=== PATIENT | male | born 1945 | race Caucasian/White ===

== ENCOUNTER 2016-05-03 09:31 | Inpatient (IN) | payer MEDICARE, OTHER ==
[~2016-05-03] VITALS: Ht 177.8 cm; Wt 81.8 kg
[2016-05-03] VITALS (24 sets, daily range): BP systolic 116–158; BP diastolic 58–94; PULSE 72–95; RESP 14–26; Ht 177.8 cm; Wt 81.8 kg
[2016-05-03] MEDS ORDERED: SOD CHLORIDE 0.9% 500 ML IV STA (09:44)
[2016-05-03] MEDS ORDERED: HEPARIN 25000 UNITS/250 ML 250 ML IV STA (09:44)
[2016-05-03] MEDS ORDERED: ASPIRIN 325 MG TAB PO STA (09:44)
[2016-05-03] MEDS ORDERED: HEPARIN 1000 UNITS/ML 10 ML INJ IV STA (09:44)
[2016-05-03] MEDS ORDERED: TICAGRELOR 90 MG TABLET PO ONE (10:00)
[2016-05-03] MEDS ORDERED: NITROGLYCERIN (SL) 0.4 MG TAB SL PRN (10:00)
[2016-05-03 10:11] LABS: BASOPHILS % 0.3 % (0.0-2.0); EOSINOPHILS # 0.2 10^3/ul (0.0-0.5); EOSINOPHILS % 1.8 % (0.0-7.0); HEMATOCRIT 43.8 % (42.0-52.0); HEMOGLOBIN 14.9 g/dl (14.0-18.0); LYMPHOCYTES # 2.4 10^3/ul (0.8-2.9); LYMPHOCYTES % 21.1 % (15.0-51.0); MEAN CORPUSCULAR HEMOGLOBIN 33.1 pg (29.0-33.0); MEAN CORPUSCULAR HGB CONC 34.1 g/dl (32.0-37.0); MEAN CORPUSCULAR VOLUME 97.2 fl (82.0-101.0); MEAN PLATELET VOLUME 8.7 fl (7.4-10.4); MONOCYTE # 0.9 10^3/ul (0.3-0.9); MONOCYTES % 7.6 % (0.0-11.0); NEUTROPHIL # 7.9 10^3/ul (1.6-7.5); NEUTROPHILS % 69.2 % (39.0-77.0); PLATELET COUNT 303 10^3/UL (140-440); RED BLOOD COUNT 4.51 10^6/ul (4.70-6.10); RED CELL DISTRIBUTION WIDTH 12.6 % (11.5-14.5); UNCORRECTED WBC 11.4 10^3/ul (4.8-10.8); WHITE BLOOD COUNT 11.4 10^3/ul (4.8-10.8)
[2016-05-03 10:14] LABS: CONDITION 1
[2016-05-03] MEDS ORDERED: LIDOCAINE 1% (MDV) 20 ML INJ ONE (10:16)
[2016-05-03] MEDS ORDERED: IODIXANOL LOCM 100 ML BTL ONE ×2 (10:16→10:54)
[2016-05-03] MEDS ORDERED: MIDAZOLAM 1 MG/ML 2 ML INJ ONE (10:19)
[2016-05-03] MEDS ORDERED: FENTAnyl 50 MCG/ML VIAL ONE (10:20)
[2016-05-03 10:21] LABS: ALBUMIN 4.5 g/dl (3.3-4.9)
[2016-05-03] MEDS ORDERED: BIVALIRUDIN 250MG /NS 50 ML 50 ML IVPB ONE ×2 (10:21→11:14)
[2016-05-03 10:22] LABS: INR 0.85; POTASSIUM 4.5 mmol/L (3.5-5.1); PROTIME 11.6 Sec (12.2-14.2); PT RATIO 0.9
[2016-05-03] MEDS ORDERED: NITROGLYCERIN (IC) 100 MCG/ML INJ ONE (10:31)
[2016-05-03 10:33] LABS: ALBUMIN/GLOBULIN RATIO 1.28
[2016-05-03] MEDS ORDERED: VERAPAMIL 5 MG INJ ONE (10:33)
[2016-05-03 10:34] LABS: BILIRUBIN,INDIRECT 0.3 mg/dl (0-1.1); BILIRUBIN,TOTAL 0.3 mg/dl (0.2-1.3); CREATININE 0.99 mg/dl (0.61-1.24)
[2016-05-03 10:35] LABS: CALCIUM 9.8 mg/dl (8.4-10.2)
[2016-05-03 10:50] LABS: TROPONIN-I 0.195 ng/ml (0.00-0.12)
[2016-05-03] MEDS ORDERED: IOHEXOL 350MG/ML 50 ML BTL ONE (10:55)
[2016-05-03] MEDS ORDERED: IODIXANOL LOCM 50 ML BTL ONE (10:55)
[2016-05-03] MEDS ORDERED: SOD CHLORIDE 0.9% 1,000 ML IV SCH (11:05)
[2016-05-03] MEDS ORDERED: BIVALIRUDIN 250MG /NS 50 ML 50 ML IV SCH (11:05)
--- NOTE | 2016-05-03 11:21 | ERA ---
ER Documentation Chief Complaint Date/Time DATE: 05/03/16 TIME: 11:14 Chief Complaint cp x 1 wk HPI 70-year-old man presents with substernal bandlike pressure pain across the chest 4 days which she states got worse last night and has continued through the morning. He denies previous episodes, and states that the discomfort has been exertional and radiating down the left medial arm. He has had some diaphoresis including this morning, denies shortness of breath, no fevers or chills, no cough, no headache or blurry vision. Patient denies significant family history. ROS All systems reviewed and are negative except as per history of present illness. PMhx/Soc Hypertension, diabetes mellitus, tobacco smoke, hyperlipidemia Medical and Surgical Hx: pt denies Surgical Hx History of Surgery: No Anesthesia Reaction: No Hx Neurological Disorder: No Hx Respiratory Disorders: No Hx Cardiac Disorders: Yes (HTN, HLD, DM-II oral) Hx Psychiatric Problems: No Hx Miscellaneous Medical Probl: No Hx Alcohol Use: Yes Hx Substance Use: No Hx Tobacco Use: Yes Smoking Status: Current every day smoker FmHx Family History: No diabetes Physical Exam Vitals Vital Signs Date Time Temp Pulse Resp B/P Pulse Ox O2 Delivery O2 Flow Rate FiO2 05/03/16 09:50 Nasal Cannula 4 05/03/16 09:32 97.9 80 20 209/92 100 Physical Exam GENERAL: Well-developed, well-nourished, well-hydrated, in no apparent distress , looks nontoxic in appearance HEENT: Moist mucous membranes, pink conjunctiva, no cervical spine tenderness or step-off deformities, no goiter, no jaundice or icterus, extraocular movements intact without pain. No submandibular induration, and no pharyngeal erythema NEURO: Alert and oriented 3, cranial nerves II through XII intact bilaterally, pupils equal round reactive to light, no focal deficits or facial asymmetry, sensation intact distally Strength 5/5 in upper and lower extremities bilaterally CARDIAC: Regular rate and rhythm, no murmurs rubs or gallops LUNGS: Clear bilaterally no wheezing crackles or stridor ABDOMEN: Soft nontender, no guarding, no rigidity, no rebound, no psoas sign no obturator sign. Normoactive bowel sounds SKIN: Warm and dry to touch, no abrasions, contusions, or hematomas, no lacerations, no ecchymosis, no target lesions, and without ulcers EXTREMITIES: No clubbing cyanosis or edema, calves are bilaterally symmetrical, no Homans sign, no popliteal cord sign. Distal pulses equal and bilateral PSYCH: Normal affect without agitation or irritability Result Diagram: 05/03/1695405/03/16954 Results 24 hrs Laboratory Tests Test 05/03/16 09:55 Activated Partial Thromboplast Time 25.0Sec Alanine Aminotransferase (ALT/SGPT) 44IU/L Albumin 4.5g/dl Albumin/Globulin Ratio 1.28 Alkaline Phosphatase 118IU/L Anion Gap 23 Aspartate Amino Transf (AST/SGOT) 37IU/L B-Type Natriuretic Peptide 575PG/ML Basophils # 0.010^3/ul Basophils % 0.3% Blood Urea Nitrogen 20mg/dl Calcium Level 9.8mg/dl Carbon Dioxide Level 24mmol/L Chloride Level 101mmol/L Creatinine 0.99mg/dl Direct Bilirubin 0.00mg/dl Eosinophils # 0.210^3/ul Eosinophils % 1.8% Globulin 3.50g/dl Glucose Level 208mg/dl Hematocrit 43.8% Hemoglobin 14.9g/dl INR International Normalized Ratio 0.85 Indirect Bilirubin 0.3mg/dl Lipase 192U/L Lymphocytes # 2.410^3/ul Lymphocytes % 21.1% Mean Corpuscular Hemoglobin 33.1pg Mean Corpuscular Hemoglobin Concent 34.1g/dl Mean Corpuscular Volume 97.2fl Mean Platelet Volume 8.7fl Monocytes # 0.910^3/ul Monocytes % 7.6% Neutrophils # 7.910^3/ul Neutrophils % 69.2% Nucleated Red Blood Cells # 0.010^3/ul Nucleated Red Blood Cells % 0.0/100WBC Platelet Count 28430^3/UL Potassium Level 4.5mmol/L Prothrombin Time 11.6Sec Prothrombin Time Ratio 0.9 Red Blood Count 4.5110^6/ul Red Cell Distribution Width 12.6% Sodium Level 143mmol/L Total Bilirubin 0.3mg/dl Total Protein 8.0g/dl Troponin I 0.195ng/ml White Blood Count 11.410^3/ul Current Medications Medications (Trade) Dose Ordered Sig/Leticia Route PRN Reason Start Time Stop Time Status Last Admin Dose Admin Sodium Chloride (NS) 500 ml @ 500 mls/hr Q1H STAT IV 05/03/16 09:44 05/03/16 10:43 DC 05/03/16 09:58 Aspirin (Aspirin) 325 mg ONCE STAT PO 05/03/16 09:44 05/03/16 09:48 DC 05/03/16 09:53 Nitroglycerin (Nitroglycerin (Sl Tab) 0.4 Mg) 1 tab Q5M UP TO 3 DOSES PRN SL CHEST PAIN 05/03/16 10:00 05/03/16 09:53 Heparin Sodium (Porcine) 5000 unit 5,000 unit ONCE STAT IV 05/03/16 09:44 05/03/16 09:48 DC 05/03/16 09:55 Heparin Sodium (Porcine) (Heparin 97400 Units/250 ml) 250 ml @ 0 mls/hr ONCE STAT IV 05/03/16 09:44 05/03/16 09:48 DC 05/03/16 09:53 Ticagrelor (Brilinta) 180 mg ONCE ONCE PO 05/03/16 10:00 05/03/16 10:01 DC 05/03/16 09:53 Procedures/MDM IV line was established patient was placed on loftsman rhythm strip revealed a sinus rhythm at about 80 bpm with upright P and T waves. EKG was performed upon presentation, while the patient was still in the waiting room it revealed a normal sinus rhythm at 79 bpm, normal axis, narrow QRS complex with 3-[address] elevations in inferior leads and ST depressions in anterior leads including 1, aVL, V2 consistent with acute ischemic changes. Code STEMI was called. Chest X-ray 1V Interpreted by me: Soft Tissue: No acute abnormalities Bones: No acute abnormalities Mediastinum/Cardiac Silhouette/Lungs: No acute abnormalities I administered 500 cc normal saline intravenously, aspirin 325 mg p.o. for cardioprotective measures, heparin 5000 units IV bolus, ticagrelor 180 mg p.o., nitroglycerin 0.4 mg sublingual, followed by heparin drip. Patient remains symptomatic. CBC and electrolytes were unremarkable, troponin positive at 0.2, liver function tests are normal, coagulation profile was normal. After obtaining both verbal and written consent patient was taken to cardiology medical laboratory specialist for emergent PCI. Patient has [facility] insurance and will be admitted to Dr. Amara BRODERICK, who I spoke to. Critical Care: Time: 32 minutes, this was time separate from other procedures. Treatments/Evaluations: Close monitoring and treatment of unstable vital signs, cardiorespiratory, and neurologic status, while maintaining tight balance of fluid, respiratory, and cardiac interventions. Departure Diagnosis: Primary Impression: ST elevation myocardial infarction (STEMI) Qualified Code: I21.11 - ST elevation myocardial infarction involving right coronary artery Additional Impression: Hypertension Qualified Code: I10 - Essential hypertension Condition: Serious DIALLO FOSTER MD May 03, 2016 11:20
[2016-05-03] MEDS ORDERED: OXYCODONE/ACETAMINOPHEN (5/325) TAB PO PRN ×2 (11:30)
[2016-05-03] MEDS ORDERED: ZOLPIDEM 5 MG TAB PO PRN (11:30)
[2016-05-03] MEDS ORDERED: morphine 2 MG INJ IV PRN (11:30)
[2016-05-03] MEDS ORDERED: ACETAMINOPHEN 325 MG TAB PO PRN (11:30)
[2016-05-03] MEDS ORDERED: DIAZEPAM 2 MG TAB PO PRN (11:30)
--- NOTE | 2016-05-03 11:40 | SP ---
DATE OF PROCEDURE: 05/03/2016 PROCEDURE PERFORMED: 1. Emergent left heart catheterization, selective right and left coronary angiography. 2. Thrombectomy of the right coronary artery. 3. Successful percutaneous transluminal coronary angioplasty and stenting of the right coronary art blair proximal and mid right coronary artery from 99% stenosis to no significant residual stenosis usi ng a 3.5 x 34 mm Resolute drug-eluting stent and postdilated with a 4.0 balloon. 4. Right femoral angiogram with closure using a Perclose device. SPANISH INTERPRETER/TRANSLATOR: Leonie Kaur MD INDICATIONS: This is an unfortunate 70-year-old gentleman who presents with diabetes, smoker who pr esented with inferior ST elevation myocardial infarction. FINDINGS: 1. Left main coronary artery is a large vessel. It has about 20% distal stenosis. 2. Left anterior descending is a long vessel that wraps around the apex. It is very tortuous. Pro ximally he has about 60% stenosis at the mid level diffuse area of about up to 80% stenosis and very tortuous. At the very distal level at the apex, there is an area right at the apex of probably abo ut 99% stenosis noted as well. 3. Left circumflex artery is nondominant. Moderate sized vessel. OM1 is a moderate sized vessel w ith about 60% focal lesion followed by another 70% stenosis. The second obtuse marginal is a smalle r vessel and has about 80% stenosis as well. 4. Right coronary artery is a very large, dominant vessel. 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 Proximal to mid level has about 99% stenosis with evidence of intraluminal thrombus. After successf ul PTCA stenting of this lesion, no significant residual stenosis left. LV systolic pressure is 150 , LVEDP is 20. Aortic pressure with pullback is 147/61. DESCRIPTION OF PROCEDURE: Written informed consent was obtained after risks were discussed with the patient in detail. The patient went emergently to the wharf laborer and placed in the supine position. Right and left groins were prepped in sterile fashion. Right groin area was anesthetized with 1% l idocaine. modified Seldinger technique with 6-Kazakh in left femoral artery. Diagnostic JL4 cathet er was advanced and engaged in the left main coronary and angiogram was obtained. Then a JR4 guidin g catheter was advanced and engaged in the right coronary artery and angiogram was obtained. Angiom ax was started. A [employer] Analyst wire was used and advanced across the lesion. A 2.5 x 12 mm balloon was ad vanced across the lesion, multiple times inflated. Angiogram was obtained. Then, Pronto was used a nd thrombectomy was done. Angiogram was obtained after intracoronary nitroglycerin and verapamil wa s given. Then, I used a 3.5 x 32 mm Resolute drug-eluting stent which was across the lesion and dep loyed it at 16 atmospheres. Angiogram was obtained. Finally, I used a 401 noncompliant balloon whi ch was placed within the stent and postdilated up to 20 atmospheres. Thrombectomy was also done gregg or to the stenting. Final angiogram was obtained which showed ELISA 3 flow, no evidence of dissection, no significant res idual stenosis. Catheter and Glidewire were removed. Pigtail was advanced and engaged in the left main, hemodynamics recorded while pullback aortic pressure was measured. Right femoral angiogram wa s performed. Perclose was successfully deployed. IMMEDIATE COMPLICATIONS: None. TOTAL CONTRAST USED: 75 mL of Visipaque. CONCLUSION: Successful percutaneous transluminal coronary angioplasty with stent thrombectomy of th e right coronary artery from subtotal lesion to no significant residual stenosis. RECOMMENDATIONS: Aggressive medical therapy. Aspirin indefinitely. Brilinta with minimum next 1 y ear. Staged procedure of the other vessels at a later time. Dictated By: LEONIE KAUR MD AV/ALEXX Conf#: [id number] DID#: [id number] CC: JAREK GIBSON MD; ; DIALLO OFSTER MD;*[facility]*
[2016-05-03] MEDS ORDERED: GLUCAGON 1 MG INJ IM PRN (15:00)
[2016-05-03] MEDS ORDERED: GLUCOSE GEL 15 GRAM TUBE PO PRN ×2 (15:00)
[2016-05-03] MEDS ORDERED: GLUCOSE GEL 15 GRAM TUBE BUCCAL PRN (15:00)
[2016-05-03] MEDS ORDERED: DEXTROSE 50% 50 ML SYRINGE IV PRN ×2 (15:00)
--- NOTE | 2016-05-03 17:34 | HP ---
DATE OF ADMISSION: 05/03/2016 LINUX SERVER ENGINEER ON THIS ADMISSION: Dr. Kaur from Cardiology. CHIEF COMPLAINT ON ADMISSION: Chest pain and STEMI CODE. HISTORY OF PRESENT ILLNESS: This is a 70-year-old male with past medical history of hypertension, h yperlipidemia, diabetes mellitus who presented to the emergency department with complaint of chest p ain and on EKG was found to be a STEMI CODE. The patient reports that he has been having chest pain on and off, at least for the past week, and last night he had episodes of chest pain, chest pressur e, went to bed, woke up this morning with ongoing chest pressure radiating down his arm, more like a n ache at that time. He had episode of nausea, diaphoresis also. This morning, he called his [facility] physician who directed him to the emergency department. Upon arrival to the emergency depar tme, he was feeling dizzy and diaphoretic. He had an EKG done and was found to have ST elevation myocardial infarction. STEMI code was called. The patient was taken to the microbiology lab analyst. His RCA was 90% to 99% occluded, requiring a stent placement. The patient has additional diffuse coronary arter y disease that will require staged PTCA later on down the line. Post-procedure, he is doing well. He is in recovery awaiting admission to the intensive care unit. ALLERGIES: NO KNOWN ALLERGIES. PAST MEDICAL HISTORY: 1. Hypertension. 2. Hyperlipidemia. 3. Diabetes mellitus. 4. Major depressive disorder. PAST SURGICAL HISTORY: Status post right hand surgery remotely. SOCIAL HISTORY: The patient is a smoker. He has been smoking for the past 54 years, up to 1 pack a day. His last cigarette was this morning. He does drink alcohol. He reports drinking beers on an d off daily. REVIEW OF SYSTEMS: As per HPI. The patient denies any neurological deficits. OUTPATIENT MEDICATIONS: 1. Lisinopril 20 mg p.o. daily. 2. Atorvastatin at bedtime. He is not sure of his dosage. 3. Metformin 500 mg p.o. b.i.d. 4. Effexor 75 mg p.o. b.i.d. 5. Aspirin 81 mg p.o. daily. PHYSICAL EXAMINATION: VITAL SIGNS: Temperature 97.8, heart rate of 95, respiratory rate 16, blood pressure 139/79. The p atient is satting 98% on room air. GENERAL: He is alert and oriented x4. Currently, he is much more comfortable in recovery. HEENT: Pupils are equally round and reactive to light. Extraocular muscles are intact. Anicteric sclerae. NECK: No JVD. No thyromegaly noted. HEART: Regular rate and rhythm. No murmur, rubs, or gallops. LUNGS: Clear to auscultation bilaterally. ABDOMEN: Soft, nontender, nondistended. Bowel sounds are present. EXTREMITIES: No edema, clubbing, or cyanosis. NEUROLOGIC: Grossly intact. LABORATORY DATA: White blood cell count 11.4, hemoglobin 14.9, hematocrit 43.8, platelet count of 3 03. Chemistry with a sodium of 143, potassium 4.5, chloride 101, bicarbonate 24, BUN 20, creatinine 0.99, glucose of 208, calcium 9.8. Total bilirubin 0.3, AST 37, ALT 44, alkaline phosphatase 118. Troponin was 0.195 on arrival. BNP of 575. Albumin 4.5. Lipase of 192. INR 0.85. PT 11.6, PTT 25. EKG did show STEMI. ASSESSMENT AND PLAN: This is a 70-year-old male with: 1. Acute ST elevation myocardial infarction, status post percutaneous transluminal coronary angiopl asty of right coronary artery, doing much better, going to ICU. He has been started on carvedilol a lready. He is on aspirin and Brilinta along with Lipitor. 2. Hypertension. Again, he has been started on YESENIA inhibitors and carvedilol. Blood pressure is s table. 3. Hyperlipidemia. He has been started on Lipitor. Fasting lipid panel is pending for the morning . 4. Diabetes mellitus. Will check hemoglobin A1c. Will have him on sliding scale insulin. I will hold his metformin for now given the fact that he just had an angiogram. 5. Major depressive disorder. I will resume his Effexor. 6. Prophylaxis: Pepcid for gastrointestinal prophylaxis. Sequential compression devices to lower extremities for deep vein thrombosis prophylaxis. DISPOSITION: The patient is being admitted to the ICU for observation overnight. Dictated By: JAREK RIDLEY/ALEXX Conf#: [id number] DID#: [id number]
[2016-05-03 17:43] LABS: CREATININE 0.85 mg/dl (0.61-1.24); POTASSIUM 4.4 mmol/L (3.5-5.1)
[2016-05-03 17:44] LABS: MAGNESIUM 1.8 mg/dl (1.7-2.5)
[2016-05-03] MEDS: INSULIN ASPART [NOVOLOG] 3 ML PEN SC SCH ×2 (18:00→23:15)
[2016-05-03 18:28] LABS: TROPONIN-I 90.9 ng/ml (0.00-0.12)
[2016-05-03] MEDS: TICAGRELOR 90 MG TABLET PO SCH (20:08)
--- NOTE | 2016-05-03 20:59 | RADRPT ---
Echocardiogram Report Patient Name: MELISSA TATE Gender: Male Date: 1945 Study Date: 03-May-2016 Laboratory Machinist: [facility] Location: [place] [address] Ref. Physician: LEONIE KAUR Quality: Good Procedures: Transthoracic echocardiogram with complete 2D, M-Mode, and doppler examination. Indications: STEMI. 2D/M Mode Doppler Measurement Value Normal Ranges Measurement Value Normal Ranges LVIDd 2D 4.3 3.5 - 5.6 cm AV Peak Darryl 1.5 m/sec LVIDs 2D 2.9 2.1 - 4.1 cm AV Peak PG 9.0 mmHg FS 2D 32.6 % LVOT Peak Darryl 1.1 m/sec LVPWd 2D 1.2 0.6 - 1.1 cm LVOT Peak PG 5.0 mmHg IVSd 2D 1.3 0.6 - 1.1 cm MV E Peak Darryl 0.1 m/sec IVS/LVPW 2D 1.0 MV A Peak Darryl 1.2 m/sec AoR Diam 2D 2.9 2.0 - 3.7 cm MV Decel Time 218 msec LA/Ao 2D 1 0 - 1 EDV 2D 80.6 cm3 ESV 2D 24.6 cm3 LA Dimen 2D 4.0 2.3 - 4.0 cm Findings Left Ventricle: Normal left ventricular systolic function. Normal left ventricular cavity size. Left ventricular wall thickness upper limits of normal. Ejection fraction is visually estimated at 65 %. Tissue Doppler/Mitral Doppler indices are consistent with impaired relaxation (Stage I diastolic dysfunction). Right Ventricle: Normal right ventricular size. Normal right ventricular systolic function. Left Atrium: The left atrium is normal in size. Right Atrium: The right atrium is normal in size. Mitral Valve: Mild mitral leaflet calcification. Mild mitral valve regurgitation. Aortic Valve: Aortic cusps appear mildly calcified. Trileaflet aortic valve. No aortic regurgitation. Tricuspid Valve: Normal appearance and function of the tricuspid valve with trace physiologic regurgitation. Pulmonic Valve: Pulmonic valve not well visualized. Pericardium: Normal pericardium with no significant pericardial effusion. Aorta: Normal aortic root. IVC: Normal size and normal respiratory collapse consistent with normal right atrial pressure. Pulmonary Artery: Not well visualized. Conclusions 1.Normal left ventricular systolic function. Normal left ventricular cavity size. Left ventricular wall thickness upper limits of normal. Ejection fraction is visually estimated at 65 %. Tissue Doppler/Mitral Doppler indices are consistent with impaired relaxation (Stage I diastolic dysfunction). 2.Mild mitral leaflet calcification. Mild mitral valve regurgitation. 3.Aortic cusps appear mildly calcified. Trileaflet aortic valve. No aortic regurgitation. 4.Normal appearance and function of the tricuspid valve with trace physiologic regurgitation. Electronically Signed By: Leonie Kaur 03-May-2016 20:59:02 -0800 Patient Name: MELISSA TATE Study Date: 03-May-2016 [id number]
[2016-05-03] MEDS ORDERED: ATORVASTATIN 80 MG TAB PO SCH (21:00)
[2016-05-03] MEDS ORDERED: MAGNESIUM SULFATE 2 GM/50 ML 50 ML IVPB ONE (21:30)
--- NOTE | 2016-05-03 22:00 | RADRPT ---
PROCEDURE: XR Chest AP portable CLINICAL INDICATION: Stemi TECHNIQUE: An AP portable radiograph of the chest was submitted. COMPARISON: None FINDINGS: Support Hardware: None Cardiovascular: The cardiovascular silhouette appears unremarkable. Lung Florentino: The lung florentino appear clear with no nodule, alveolar infiltrate, for a interstitial pr ominence evident. Pleural Spaces: No pneumothorax or pleural effusion is identified. Osseous Structures: Mild degenerative spine changes are noted. Soft Tissues: The soft tissues appear generous. IMPRESSION: Unremarkable portable chest. Physician Mary Date Time Electronically viewed and signed by Chela Pérez Physician on 05/03/2016 22:00 RH/
--- NOTE | 2016-05-03 22:01 | CONS ---
DATE OF ADMISSION: 05/03/2016 DATE OF CONSULTATION: 05/03/2016 REFERRING PHYSICIAN: ____ from the emergency room, Dr. Gibson, the patient's primary care li dumont, Dr. Neeta Gurrola. CHIEF COMPLAINT: Chest pain. REASON FOR CONSULTATION: ST elevation myocardial infarction. HISTORY OF PRESENT ILLNESS: Thank you for this referral. History obtained from the patient, priya pérez with multiple physicians including DrAndre ___ from the emergency room, Dr. Gibson, the patient's adm itting physician; Dr. Neeta Gurrola, the patient's primary care physician. This is a very pleasant 70-year-old gentleman with history of hypertension, diabetes, dyslipidemia, and smoking history who presented to the emergency room with complaint of chest pain. The patient c omplains that he has had chest pain on and off over the past week. It is left-sided, pressure-like anteriorly. It has been coming and going and he ignored it. This morning apparently he called his primary care physician, Dr. Neeta Gurrola, and was advised to come to the emergency room. The patient got worse overnight. In the emergency room, EKG has showed ST elevation inferiorly. Code STEMI wa s activated and I was called for emergent evaluation. The patient was emergently taken to the airport maintenance laborer and underwent successful PCI of his right coronary artery, which was about 99% occluded. He was also noted to have multivessel disease including left main, LAD, and circumflex artery stented. Th e patient has been transferred to ICU for close monitoring. Currently, remains chest pain-free. De nies any groin pain or bleeding either. PAST MEDICAL HISTORY: Diabetes, hypertension, dyslipidemia, history of depression. PAST SURGICAL HISTORY: Right hand surgery many years ago. SOCIAL HISTORY: The patient actively smokes. Drinks about 2 beers a day. Denies any drug abuse. FAMILY HISTORY: The patient's father with CVA. MEDICATIONS AT HOME: 1. Lisinopril probably 20 mg daily, although this is not clear. 2. Lipitor, dosage not clear. 3. Metformin 500 b.i.d. 4. Effexor 75. 5. Aspirin. REVIEW OF SYSTEMS: Denies all except for above-mentioned. PHYSICAL EXAMINATION: VITAL SIGNS: Temperature 97.8, heart rate of 82, blood pressure 145/85 now, respiration rate of 16, saturating 97%. HEENT: Normocephalic, atraumatic. No acute distress. Pupils equal and round. CARDIOVASCULAR: Regular rate and rhythm with systolic murmur. PULMONARY: With no wheezes. GASTROINTESTINAL: Soft, nontender. EXTREMITIES: No significant lower extremity edema. VASCULAR: Right femoral with no hematoma. Minimal tenderness to palpation. NEUROLOGIC: Awake, alert x3. PSYCHIATRIC: Very pleasant. DIAGNOSTIC DATA: EKG in the emergency room showed normal sinus rhythm with ST elevation inferiorly consistent with acute ST elevation myocardial infarction. LABORATORY: Shows initial troponin was 0.195, second troponin was 90.9. Total CK 1365, MB fraction of 132. Sodium 140, potassium 4.4, BUN of 22, creatinine 0.85, glucose 125. Initial glucose was 2 08. Magnesium is 1.8. Echocardiogram was done, which was also personally reviewed, and shows ejection fraction of 65%. Gr daisy I diastolic dysfunction. Normal LV systolic function. ASSESSMENT AND PLAN: 1. Acute inferior ST elevation myocardial infarction. 2. Diabetes. 3. Hypertension. 4. Dyslipidemia. 5. Smoker. 6. History of depression. RECOMMENDATIONS: I have started the patient on aspirin and Brilinta. The patient will be placed on high dose Lipitor. Coreg has been started. Lisinopril will be continued, as tolerated. Will chec k the lipid panel tomorrow. We will continue to closely monitor him for any sign of arrhythmia or V Tach. Will replace the magnesium with the addition of 2 mg magnesium. More than 45 minutes of critical care time was spent in management of this patient excluding any pro cedures. Dictated By: LEONIE BRITT MD AV/ALEXX Conf#: [id number] DID#: [id number] CC: JAREK GIBSON MD; NEETA GURROLA MD;*End*
[2016-05-03 22:36] LABS: CK-MB 92.4 ng/ml (0.0-2.4); TROPONIN-I 75.1 ng/ml (0.00-0.12)
[2016-05-03] MEDS: VENLAFAXINE 75 MG TABLET PO SCH (22:51)
[2016-05-03] MEDS: FAMOTIDINE 20 MG TAB PO SCH (23:14)
[2016-05-04] VITALS (9 sets, daily range): BP systolic 109–149; BP diastolic 62–84; PULSE 70–89; RESP 18–20
[2016-05-04] MEDS: INSULIN ASPART [NOVOLOG] 3 ML PEN SC SCH ×2 (07:55→12:29)
[2016-05-04 07:58] LABS: BASOPHILS % 0.2 % (0.0-2.0); EOSINOPHILS # 0.1 10^3/ul (0.0-0.5); EOSINOPHILS % 1.2 % (0.0-7.0); HEMATOCRIT 35.9 % (42.0-52.0); HEMOGLOBIN 12.4 g/dl (14.0-18.0); LYMPHOCYTES # 1.5 10^3/ul (0.8-2.9); LYMPHOCYTES % 16.2 % (15.0-51.0); MEAN CORPUSCULAR HEMOGLOBIN 33.4 pg (29.0-33.0); MEAN CORPUSCULAR HGB CONC 34.4 g/dl (32.0-37.0); MEAN CORPUSCULAR VOLUME 97.1 fl (82.0-101.0); MEAN PLATELET VOLUME 8.6 fl (7.4-10.4); MONOCYTE # 0.7 10^3/ul (0.3-0.9); MONOCYTES % 7.7 % (0.0-11.0); NEUTROPHILS % 74.7 % (39.0-77.0); PLATELET COUNT 241 10^3/UL (140-440); RED CELL DISTRIBUTION WIDTH 12.6 % (11.5-14.5); UNCORRECTED WBC 9.4 10^3/ul (4.8-10.8); WHITE BLOOD COUNT 9.4 10^3/ul (4.8-10.8)
[2016-05-04 07:59] LABS: ALBUMIN 3.4 g/dl (3.3-4.9)
[2016-05-04 08:00] LABS: POTASSIUM 4.6 mmol/L (3.5-5.1)
[2016-05-04 08:02] LABS: ALBUMIN/GLOBULIN RATIO 1.17; BILIRUBIN,INDIRECT 0.4 mg/dl (0-1.1); BILIRUBIN,TOTAL 0.4 mg/dl (0.2-1.3); CALCIUM 8.7 mg/dl (8.4-10.2); CREATININE 0.88 mg/dl (0.61-1.24); MAGNESIUM 2.1 mg/dl (1.7-2.5); TOTAL PROTEIN 6.3 g/dl (6.1-8.1)
[2016-05-04 08:03] LABS: CHOL/HDL RATIO 2.6 RATIO
[2016-05-04 08:15] LABS: CONDITION 1
[2016-05-04 08:47] LABS: CK-MB 41.3 ng/ml (0.0-2.4); TROPONIN-I 32.5 ng/ml (0.00-0.12)
[2016-05-04] MEDS ORDERED: LISINOPRIL 10 MG TAB PO SCH (09:00)
[2016-05-04] MEDS ORDERED: LISINOPRIL 5 MG TAB PO SCH (09:00)
[2016-05-04] MEDS: TICAGRELOR 90 MG TABLET PO SCH (09:00)
[2016-05-04] MEDS ORDERED: NICOTINE (21 MG/24 HR) PATCH TRANSDERM SCH (09:00)
[2016-05-04] MEDS ORDERED: ASPIRIN (EC) 81 MG TAB PO SCH (09:00)
[2016-05-04] MEDS: VENLAFAXINE 75 MG TABLET PO SCH (09:00)
[2016-05-04] MEDS: FAMOTIDINE 20 MG TAB PO SCH (09:01)
[2016-05-04 10:34] LABS: THYROID STIMULATING HORMONE 1.9 MIU/L (0.465-4.680)
--- NOTE | 2016-05-04 12:37 | PN ---
Date/Time of Note Date/Time of Note DATE: 05/04/16 TIME: 12:20 Assessment/Plan VTE Prophylaxis VTE Prophylaxis Intervention: SCD's Lines/Catheters IV Catheter Type (from Nrs): Peripheral IV Assessment/Plan Assessment/Plan 70-year-old male : 1. Acute ST elevation myocardial infarction, status post percutaneous transluminal coronary angioplasty of right coronary artery, Remains stable. on telemetry Tolerating current meds and needs to fill Brilinta prior to discharge per Dr Kaur 2. Hypertension. Continue Lisinopril and Carvedilol. Blood pressure controlled. 3. Hyperlipidemia. He has been started on Lipitor. Fasting lipid panel is pending for the morning. 4. Diabetes mellitus. A1c of 6.3 and on Metformin at home To resume metformin on 05/07 due to the fact he had an angiogram done yesterday 5. Major depressive disorder. Continue Effexor. Prophylaxis: Pepcid for gastrointestinal prophylaxis. Sequential compression devices to lower extremities for deep vein thrombosis prophylaxis. DISPOSITION: On Telemetry with d/c plan home later today. Subjective 24 Hr Interval Summary Free Text/Dictation Patient doing OK and stable No complaints Possible d/c plan home later today if Brilinta filled Exam/Review of Systems Vital Signs Vitals Vital Signs Date Time Temp Pulse Resp B/P Pulse Ox O2 Delivery O2 Flow Rate FiO2 05/04/16 11:15 97.7 76 18 109/62 96 05/04/16 04:00 Room Air 05/03/16 21:30 2.0 Intake and Output 05/03/16 05/03/16 05/04/16 15:00 23:00 07:00 Intake Total 360 ml 480 ml 400 ml Output Total 875 ml 500 ml Balance 360 ml -395 ml -100 ml Exam Constitutional: alert, oriented, well developed Respiratory: clear to auscultation, normal air movement Cardiovascular: nl pulses, regular rate and rhythm Gastrointestinal: non-tender, soft Musculoskeletal: nl extremities to inspection Extremities: normal pulses Neurological: ONCOLOGY RADIATION PHYSICIAN II-XII intact, nl mental status, nl speech, nl strength Results Result Diagram: 05/04/16 0719 05/04/16 0719 Results 24 hrs Laboratory Tests Test 05/03/16 12:30 05/03/16 16:55 05/03/16 17:27 05/03/16 21:50 Bedside Glucose 130 139 Anion Gap 13 # Blood Urea Nitrogen 22 H Calcium Level 9.0 Carbon Dioxide Level 28 Chloride Level 103 Creatine Kinase 1367 H 1099 H Creatine Kinase Index 9.7 8.4 Creatinine 0.85 Creatinine Kinase MB (Mass) 132.00 H 92.40 H Glucose Level 125 # Magnesium Level 1.8 Potassium Level 4.4 Sodium Level 140 Troponin I 90.900 *H 75.100 *H Test 05/03/16 23:14 05/04/16 07:19 05/04/16 07:40 05/04/16 11:37 Bedside Glucose 138 124 170 Alanine Aminotransferase (ALT/SGPT) 55 Albumin 3.4 # Albumin/Globulin Ratio 1.17 Alkaline Phosphatase 87 Anion Gap 14 Aspartate Amino Transf (AST/SGOT) 165 #H B-Type Natriuretic Peptide 1600 H Basophils # 0.0 Basophils % 0.2 Blood Urea Nitrogen 18 Calcium Level 8.7 Carbon Dioxide Level 29 Chloride Level 102 Cholesterol Level 116 Cholesterol/HDL Ratio 2.6 Creatine Kinase 632 H Creatine Kinase Index 6.5 Creatinine 0.88 Creatinine Kinase MB (Mass) 41.30 H Direct Bilirubin 0.00 Eosinophils # 0.1 Eosinophils % 1.2 Free Thyroxine 1.10 Globulin 2.90 Glucose Level 126 HDL Cholesterol 44 Hematocrit 35.9 L Hemoglobin 12.4 L Hemoglobin A1c 6.3 H Indirect Bilirubin 0.4 LDL Cholesterol, Calculated 45 Lymphocytes # 1.5 Lymphocytes % 16.2 Magnesium Level 2.1 Mean Corpuscular Hemoglobin 33.4 H Mean Corpuscular Hemoglobin Concent 34.4 Mean Corpuscular Volume 97.1 Mean Platelet Volume 8.6 Monocytes # 0.7 Monocytes % 7.7 Neutrophils # 7.0 Neutrophils % 74.7 Nucleated Red Blood Cells # 0.0 Nucleated Red Blood Cells % 0.0 Platelet Count 241 # Potassium Level 4.6 Red Blood Count 3.70 L Red Cell Distribution Width 12.6 Sodium Level 140 Thyroid Stimulating Hormone (TSH) 1.900 Total Bilirubin 0.4 Total Protein 6.3 # Triglycerides Level 136 Troponin I 32.500 *H White Blood Count 9.4 Medications Medications Current Medications Aspirin (Halfprin) 81 mg DAILY PO Last administered on 05/04/16 09:00; Admin Dose 81 MG; Start 05/04/16 at 09:00 Ticagrelor (Brilinta) 90 mg BID PO Last administered on 1/13/17at 09:00; Admin Dose 90 MG; Start 05/03/16 at 21:00 Acetaminophen (Tylenol Tab) 650 mg Q4H PRN PO NON-CARDIAC PAIN LEVEL 1-3; Start 05/03/16 at 11:30 Oxycodone/ Acetaminophen (Percocet (5/ 325)) 1 tab Q4H PRN PO REPORTED NON- CARDIAC PAIN 4-7; Start 05/03/16 at 11:30 Oxycodone/ Acetaminophen (Percocet (5/ 325)) 2 tab Q4H PRN PO REPORTED NON- CARDIAC PAIN 4-7; Start 05/03/16 at 11:30 Morphine Sulfate (morphine) 1 mg Q1H PRN IV PAIN NOT RELIEVED BY OTHERS; Start 05/03/16 at 11:30 Diazepam (Valium) 2 mg Q6H PRN PO RESTLESSNESS; Start 05/03/16 at 11:30 Atorvastatin Calcium (Lipitor) 80 mg DAILY@21 PO Last administered on 20:04; Admin Dose 80 MG; Start 05/03/16 at 21:00 Nicotine (Nicoderm 21 Mg/ 24hr) 1 patch DAILY TRANSDERM ; Start 05/04/16 at 09: 00 Miscellaneous Information 1 ea NOTE XX ; Start 05/03/16 at 15:00 Glucose (Glutose) 15 gm Q15M PRN PO DECREASED GLUCOSE; Start 05/03/16 at 15:00 Glucose (Glutose) 22.5 gm Q15M PRN PO DECREASED GLUCOSE; Start 05/03/16 at 15: 00 Dextrose (D50w Syringe) 25 ml Q15M PRN IV DECREASED GLUCOSE; Start 05/03/16 at 15:00 Dextrose (D50w Syringe) 50 ml Q15M PRN IV DECREASED GLUCOSE; Start 05/03/16 at 15:00 Glucagon (Glucagen) 1 mg Q15M PRN IM DECREASED GLUCOSE; Start 05/03/16 at 15:00 Glucose (Glutose) 15 gm Q15M PRN BUCCAL DECREASED GLUCOSE; Start 05/03/16 at 15 :00 Famotidine (Pepcid) 20 mg BID PO Last administered on 05/04/16 09:01; Admin Dose 20 MG; Start 05/03/16 at 18:00 Venlafaxine HCl (Effexor) 75 mg BID PO Last administered on 05/04/16 09:00; Admin Dose 75 MG; Start 05/03/16 at 21:00 Carvedilol (Coreg) 6.25 mg BID PO Last administered on 05/04/16 09:01; Admin Dose 6.25 MG; Start 05/04/16 at 09:00 Lisinopril (Zestril) 10 mg DAILY PO Last administered on 05/04/16 09:01; Admin Dose 10 MG; Start 05/04/16 at 09:00 Procedures Procedures Echocardiogram Report Patient Name: MELISSA TATE Gender: Male Date: 1945 Study Date: 03-May-2016 Director Of Psychology: Ravi [facility] Location: [place] [address] Ref. Physician: LEONIE KAUR Quality: Good Procedures: Transthoracic echocardiogram with complete 2D, M-Mode, and doppler examination. Indications: STEMI. 2D/M Mode Doppler Measurement Value Normal Ranges Measurement Value Normal Ranges LVIDd 2D 4.3 3.5 - 5.6 cm AV Peak Darryl 1.5 m/sec LVIDs 2D 2.9 2.1 - 4.1 cm AV Peak PG 9.0 mmHg FS 2D 32.6 % LVOT Peak Darryl 1.1 m/sec LVPWd 2D 1.2 0.6 - 1.1 cm LVOT Peak PG 5.0 mmHg IVSd 2D 1.3 0.6 - 1.1 cm MV E Peak Darryl 0.1 m/sec IVS/LVPW 2D 1.0 MV A Peak Darryl 1.2 m/sec AoR Diam 2D 2.9 2.0 - 3.7 cm MV Decel Time 218 msec LA/Ao 2D 1 0 - 1 EDV 2D 80.6 cm3 ESV 2D 24.6 cm3 LA Dimen 2D 4.0 2.3 - 4.0 cm Findings Left Ventricle: Normal left ventricular systolic function. Normal left ventricular cavity size. Left ventricular wall thickness upper limits of normal. Ejection fraction is visually estimated at 65 %. Tissue Doppler/Mitral Doppler indices are consistent with impaired relaxation (Stage I diastolic dysfunction). Right Ventricle: Normal right ventricular size. Normal right ventricular systolic function. Left Atrium: The left atrium is normal in size. Right Atrium: The right atrium is normal in size. Mitral Valve: Mild mitral leaflet calcification. Mild mitral valve regurgitation. Aortic Valve: Aortic cusps appear mildly calcified. Trileaflet aortic valve. No aortic regurgitation. Tricuspid Valve: Normal appearance and function of the tricuspid valve with trace physiologic regurgitation. Pulmonic Valve: Pulmonic valve not well visualized. Pericardium: Normal pericardium with no significant pericardial effusion. Aorta: Normal aortic root. IVC: Normal size and normal respiratory collapse consistent with normal right atrial pressure. Pulmonary Artery: Not well visualized. Conclusions 1. Normal left ventricular systolic function. Normal left ventricular cavity size. Left ventricular wall thickness upper limits of normal. Ejection fraction is visually estimated at 65 %. Tissue Doppler/Mitral Doppler indices are consistent with impaired relaxation (Stage I diastolic dysfunction). 2. Mild mitral leaflet calcification. Mild mitral valve regurgitation. 3. Aortic cusps appear mildly calcified. Trileaflet aortic valve. No aortic regurgitation. 4. Normal appearance and function of the tricuspid valve with trace physiologic regurgitation. Electronically Signed By: Leonie Kaur 03-May-2016 JAREK GIBSON May 04, 2016 12:37 JAREK GIBSON May 04, 2016 12:37
--- NOTE | 2016-05-04 12:50 | PDOCDIS ---
Discharge Instructions CONDITION Patient Condition: Stable HOME CARE INSTRUCTIONS: Special Diet: 1800 NICOLÁS 2gm NA ACTIVITY: Activity Restrictions: No Restrictions FOLLOW UP/APPOINTMENTS Appointments Follow up with Dr Kaur in 1 to 2 weeks , ECG as outpatient with Dr Kaur Follow up with PCP within 1 to 2 weeks OTHER ORDERS: Other Orders: Ok to resume home dosing of Effexor Ok to resume Metformin on Sunday 05/07 JAREK GIBSON May 04, 2016 12:50
[2016-05-04] MEDS ORDERED: CARV6.2579 PO (12:56)
[2016-05-04] MEDS ORDERED: LISI10TA2 PO (12:56)
[2016-05-04] MEDS ORDERED: ASPI-664 PO (12:56)
[2016-05-04] MEDS ORDERED: ATOR80TA75 PO (12:56)
[2016-05-04] MEDS ORDERED: TICA90TA PO (12:57)
--- NOTE | 2016-05-05 13:30 | PN ---
DATE: 05/04/2016 CARDIOLOGY FOLLOWUP SUBJECTIVE: Discussed with the staff. The patient remains in sinus rhythm. No episodes of ventric ular tachycardia reported. No chest pain or pressure. No palpitation. No groin pain. Wants to go home. MEDICATIONS: Reviewed as per medication reconciliation, personally reviewed. PHYSICAL EXAMINATION: VITAL SIGNS: Temperature 97.7, heart rate of 81, blood pressure 102/62, respiration rate of 18, sat urating 96%. HEENT: Normocephalic, atraumatic. No acute distress. Pupils are equal. CARDIOVASCULAR: Regular rate and rhythm. No murmur appreciated. PULMONARY: With no wheezes or rhonchi. GASTROINTESTINAL: Soft, nontender. VASCULAR: Right femoral with no bleeding, no hematoma. NEUROLOGIC: Appears to be calm and pleasant. DIAGNOSTIC DATA: EKG this morning shows normal sinus rhythm. Possible inferior infarct, age undete rmined, ST-T abnormalities inferiorly. ASSESSMENT AND PLAN: 1. Acute inferior ST elevation myocardial infarction. 2. Status post percutaneous coronary intervention of the right coronary artery. 3. Multivessel coronary artery disease. 4. Dyslipidemia. 5. Hypertension. 6. Diabetes. RECOMMENDATIONS: His labs were reviewed. Troponin has trended down. His CK also has significantly trended down. He has been able to walk around, doing fine. He wants to go home. The patient may be discharged on the current medication including aspirin, Brilinta, statin, Coreg, YESENIA inhibitor, l isinopril. The patient has been scheduled to see me on 05/10 for followup. I have advised the nurs ing staff that the patient can be safely discharged once he has actually obtained Brilinta and has f illed the prescription to make sure there is no problem taking it. Dictated By: LEONIE BRITT MD AV/NTS Conf#: [id number] DID#: [id number] CC: JAREK GIBSON MD;*End*
--- NOTE | 2016-05-08 10:11 | RADRPT ---
Vent Rate: 78 bpm RR Interval: 0 msec ND Interval: 138 msec QRS Duration: 94 msec QT Interval: 398 msec QTC Interval: 453 msec P-R-T [place]: 67 - 79 - 73 degrees Normal sinus rhythm Normal ECG Electronically Signed By: Jared Newell [id number]
--- NOTE | 2016-05-08 10:55 | RADRPT ---
Vent Rate: 79 bpm RR Interval: 0 msec [place] Interval: 142 msec QRS Duration: 100 msec QT Interval: 408 msec QTC Interval: 467 msec P-R-T [place]: 64 - 72 - -4 degrees Normal sinus rhythm T wave abnormality, consider inferior ischemia Abnormal ECG Electronically Signed By: Jared Newell [id number]
== END 2016-05-04 18:07 | disposition home or self-care (01) | DRG 247 ==
LOC: E/R 09:31 → CCL 10:00 → SDS 10:00 → CCL 11:05 → TEL 11:05 → UNDOADMIN 05-04 00:48
PROVIDERS: ADMIT Internal Medicine; ATTEND Internal Medicine
PROC: 027034Z Dilation of Coronary Artery, One Artery with Drug-eluting Intraluminal Device, Percutaneous Approach (ICD-10-PCS; principal; 2016-05-03)
PROC: 02C03ZZ Extirpation of Matter from Coronary Artery, One Artery, Percutaneous Approach (ICD-10-PCS; 2016-05-03)
PROC: 4A023N7 Measurement of Cardiac Sampling and Pressure, Left Heart, Percutaneous Approach (ICD-10-PCS; 2016-05-03)
PROC: B2111ZZ Fluoroscopy of Multiple Coronary Arteries using Low Osmolar Contrast (ICD-10-PCS; 2016-05-03)
DX: I21.19 ST elevation (STEMI) myocardial infarction involving other coronary artery of inferior wall (principal); I10 Essential (primary) hypertension; I25.10 Atherosclerotic heart disease of native coronary artery without angina pectoris; E78.5 Hyperlipidemia, unspecified; E11.9 Type 2 diabetes mellitus without complications; F32.9 Major depressive disorder, single episode, unspecified; F17.200 Nicotine dependence, unspecified, uncomplicated; Z79.82 Long term (current) use of aspirin
CPT/HCPCS: 71010; 80048; 80053; 80061; 82550; 82553; 82962; 83036; 83690; 83735; 83880; 84439; 84443; 84484; 85025; 85610; 85730; 93005; 93306; 93458; 96374; 96375; C1725; C1757; C1760; C1769; C1874; C1887; C1894; C9606; J0583; J1644; J1815; J2250; J3010; J3475; J7040; Q9967

== ENCOUNTER 2016-05-25 08:29 | Day surgery (SDC) | payer OTHER ==
[~2016-05-25] VITALS: Ht 170.2 cm; Wt 80.8 kg
[2016-05-25] VITALS (34 sets, daily range): BP systolic 100–149; BP diastolic 49–84; PULSE 64–85; RESP 12–30; Ht 170.2 cm; Wt 80.8 kg
[~2016-05-25 08:29] MED LIST: ASPI-664 PO; ATOR80TA75 PO; CARV6.2579 PO; LISI10TA2 PO; SOD CHLORIDE 0.9% 1,000 ML IV SCH; TICA90TA PO
[2016-05-25] MEDS ORDERED: VENL75CA89 PO (09:13)
[2016-05-25] MEDS ORDERED: METF1000 PO (09:14)
[2016-05-25] MEDS ORDERED: BIVALIRUDIN 250 MG/50 ML NS BAG IVPB ONE (10:00)
[2016-05-25 10:05] LABS: BASOPHILS % 0.3 % (0.0-2.0); EOSINOPHILS # 0.2 10^3/ul (0.0-0.5); EOSINOPHILS % 2.8 % (0.0-7.0); HEMATOCRIT 40.5 % (42.0-52.0); HEMOGLOBIN 13.9 g/dl (14.0-18.0); LYMPHOCYTES # 1.6 10^3/ul (0.8-2.9); LYMPHOCYTES % 23.3 % (15.0-51.0); MEAN CORPUSCULAR HEMOGLOBIN 33.1 pg (29.0-33.0); MEAN CORPUSCULAR HGB CONC 34.2 g/dl (32.0-37.0); MONOCYTE # 0.5 10^3/ul (0.3-0.9); MONOCYTES % 6.4 % (0.0-11.0); NEUTROPHIL # 4.8 10^3/ul (1.6-7.5); NEUTROPHILS % 67.2 % (39.0-77.0); PLATELET COUNT 301 10^3/UL (140-440); RED BLOOD COUNT 4.18 10^6/ul (4.70-6.10); RED CELL DISTRIBUTION WIDTH 12.4 % (11.5-14.5); UNCORRECTED WBC 7.1 10^3/ul (4.8-10.8); WHITE BLOOD COUNT 7.1 10^3/ul (4.8-10.8)
[2016-05-25 10:08] LABS: ALBUMIN 3.9 g/dl (3.3-4.9); CHLORIDE 103 mmol/L (97-110); CONDITION 1
[2016-05-25 10:09] LABS: INR 0.85; POTASSIUM 4.4 mmol/L (3.5-5.1); PROTIME 11.6 Sec (12.2-14.2); PT RATIO 0.9; SODIUM 143 mmol/L (135-144)
[2016-05-25 10:10] LABS: CHOLESTEROL 130 mg/dl (100-200); PARTIAL THROMBOPLASTIN TIME 26.2 Sec (25.0-35.0)
[2016-05-25 10:11] LABS: ALANINE AMINOTRANSFERASE 43 IU/L (13-69); ALBUMIN/GLOBULIN RATIO 1.25; ALKALINE PHOSPHATASE 95 IU/L (42-121); ANION GAP 15 (8-16); ASPARTATE AMINO TRANSFERASE 36 IU/L (15-46); BILIRUBIN,INDIRECT 0.2 mg/dl (0-1.1); BILIRUBIN,TOTAL 0.2 mg/dl (0.2-1.3); CARBON DIOXIDE 29 mmol/L (21-31); CREATINE KINASE 41 IU/L (23-200); GLUCOSE 134 mg/dl (70-220); TRIGLYCERIDES 103 mg/dl (0-149)
[2016-05-25 10:12] LABS: CHOL/HDL RATIO 2.4 RATIO; HDL CHOLESTEROL 54 mg/dl (30-78)
[2016-05-25] MEDS ORDERED: LIDOCAINE 1% (MDV) 20 ML INJ ONE (10:21)
[2016-05-25] MEDS ORDERED: IODIXANOL LOCM 100 ML BTL ONE ×3 (10:21→11:13)
[2016-05-25] MEDS ORDERED: IOHEXOL 350MG/ML 50 ML BTL ONE (10:21)
[2016-05-25] MEDS ORDERED: NITROGLYCERIN (IC) 100 MCG/ML INJ ONE ×2 (10:25→11:12)
[2016-05-25] MEDS ORDERED: VERAPAMIL 5 MG INJ ONE (10:26)
[2016-05-25 10:27] LABS: BLOOD UREA NITROGEN 17 mg/dl (7-20); CALCIUM 9.3 mg/dl (8.4-10.2); CK-MB 1.63 ng/ml (0.0-2.4); CREATININE 0.88 mg/dl (0.61-1.24); TROPONIN-I < 0.012 ng/ml (0.00-0.12)
[2016-05-25] MEDS ORDERED: TICAGRELOR 90 MG TABLET ONE (10:36)
[2016-05-25] MEDS ORDERED: MIDAZOLAM 1 MG/ML 2 ML INJ ONE (10:37)
[2016-05-25] MEDS ORDERED: FENTAnyl 50 MCG/ML VIAL ONE (10:38)
[2016-05-25] MEDS ORDERED: NITROGLYCERIN (SL) 0.4 MG TAB SL PRN (11:30)
[2016-05-25] MEDS ORDERED: ACETAMINOPHEN 325 MG TAB PO PRN (11:30)
[2016-05-25] MEDS ORDERED: OXYCODONE/ACETAMINOPHEN (5/325) TAB PO PRN (11:30)
[2016-05-25] MEDS ORDERED: SOD CHLORIDE 0.9% 1,000 ML IV SCH (11:30)
--- NOTE | 2016-05-25 12:50 | SP ---
DATE OF PROCEDURE: 05/25/2016 NAME OF PROCEDURE: 1. Left heart catheterization, selective right and left coronary angiography. 2. Right femoral angiogram. 3. Closure of right femoral artery using a Perclose device. 4. Successful percutaneous transluminal coronary angioplasty and stenting of the distal left circum flex artery from 95% to 99% stenosis with no significant residual stenosis using a 2.25 x 12 mm Prom us drug-eluting stent. 5. Successful percutaneous transluminal coronary angioplasty and stenting of the obtuse marginal on e from 80% stenosis and no significant residual stenosis using a 2.5 x 28 mm Promus drug-eluting keo nt. SURGEON: Leonie Kaur MD CLINICAL INDICATIONS: This is a 70-year-old gentleman with history of coronary artery disease, stat us post inferior STEMI and SOCIAL SERVICES of right coronary artery, who was noted to have significant LAD and c ircumflex artery. The patient had intermittent chest pain. Otherwise, was recommended to undergo c oronary angiography or possible PCI. FINDINGS: 1. Left main coronary artery appeared to be large. It has about 10% to 20% distal stenosis. 2. Left anterior descending artery is extremely tortuous vessel wraps around the apex. Proximally about 60% stenosis. Mid-level is very tortuous and multiple areas of long lesion probably around 70 % stenosis. At the very distal at the apex it was 95% stenosis noted. 3. Left circumflex artery is nondominant. The first obtuse marginal is a moderate to large sized v essel with about 80% stenosis after the PCI of this lesion, no significant residual stenosis left. Distal left circumflex artery is small has 95% to 99% stenosis with no significant residual stenosis after the PCI. 4. 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 The stent is widely patent. LV systolic pressure is 135, LVEDP of 11, aortic pressure with pullback is 137/58. Ejection fraction about 55% with apical inferior wall hypokinesis noted. DESCRIPTION OF PROCEDURE: Written informed consent was obtained. The risks and benefits discussed with the patient. This included infection, vascular complication, bleeding complication, [place], stroke , arrhythmia, , renal failure, etc., discussed with the patient. The patient placed in supine position. Right and left groins prepped and draped in sterile fashion. Right groin area was anesth etized with 1% lidocaine, 6-Anguillan sheath was placed in right femoral artery. Right femoral angiogr am performed. JR4 catheter was advanced and engaged in the right coronary artery and angiogram was obtained. Pigtail was advanced and engaged in the left main, hemodynamics recorded. Pullback aorti c pressure was measured. Then, JL4 guiding catheter was advanced and engaged in the left main coron marlo artery. Angiogram was obtained. At this time PCI of the left circumflex artery system. A BMW wire used across into the distal left circumflex artery. A 20 x 8 mm balloon placed across the dist al lesion, inflated. Angiogram was obtained. Then, I used a 2.25 x 12 mm Promus drug-eluting stent across the lesion and deployed it at 12 atmospheres. Angiogram was obtained. Then, the wire was r edirected to the obtuse marginal and crossed the lesion in the obtuse marginal. The same stent ball oon was used and predilated the vessel. Finally, I used a 2.5 x 28 mm Promus drug-eluting stent whi ch was across the lesion, deployed it at 14 and 16 atmospheres. Final angiogram was obtained which showed ELISA 3 flow, no evidence of dissection, no significant residual stenosis. Catheter and Spickard wire were removed. Sheath was removed. Perclose was successfully deployed. IMMEDIATE COMPLICATIONS: None. TOTAL CONTRAST USED: 150 mL of Visipaque. CONCLUSION: Successful percutaneous transluminal coronary angioplasty and stenting of the distal le ft circumflex artery and obtuse marginal from up to 95% to 99% stenosis and no significant residual stenosis using two different drug-eluting stents. RECOMMENDATIONS: Aggressive medical therapy. We will follow the patient clinically and recommend o utpatient stress test. If it shows ischemia in the LAD territory we will proceed with PCI of the LA D which will need most likely more than 1 very long stent. Otherwise, if the patient remains chest pain free and , we will continue aggressive medical therapy. ICU observation overnight for now . Dictated By: LEONIE BANEGAS/ALEXX Conf#: [id number] DID#: [id number]
--- NOTE | 2016-05-25 14:22 | CONS ---
DATE OF ADMISSION: 05/25/2016 DATE OF CONSULTATION: 05/25/2016 REASON FOR CONSULTATION: Coronary artery disease. CHIEF COMPLAINT: Chest pain. Needs coronary angiogram. HISTORY OF PRESENT ILLNESS: Thank you for this referral. This is a 70-year-old pleasant gentleman with history of coronary artery disease, status post STEMI and PCI of right coronary artery with kno wn LAD and left circumflex artery disease, was admitted for PCI. Patient underwent PCI of the left circumflex artery with ____OM, currently stable with no chest pain or pressure. PAST MEDICAL HISTORY: Hypertension, history of coronary artery disease, dyslipidemia, history of S MARIA R inferiorly with PCI of right coronary artery with known coronary artery disease. ALLERGIES: NO KNOWN ALLERGY. MEDICATIONS: As per medical record was reviewed. SOCIAL HISTORY: The patient does not smoke or drink anymore. FAMILY HISTORY: Positive for coronary artery disease. REVIEW OF SYSTEMS: As above mentioned. PHYSICAL EXAMINATION: VITAL SIGNS: Temperature 96.7, heart rate 81, blood pressure 140/70, respiration 16, saturating 99% . HEENT: Normocephalic, atraumatic. No acute distress. Pupils are equal. CARDIOVASCULAR: Regular rate and rhythm. PULMONARY: No wheezes heard. GASTROINTESTINAL: Soft, nontender. EXTREMITIES: No edema. NEUROLOGIC: Awake and alert. PSYCHIATRIC: Calm, pleasant. LABORATORY: WBC of 7.1, hemoglobin 13.9, ____of 301. Sodium 143, potassium 4.4, BUN of 17, creatin ine 0.88, glucose 134. Total cholesterol 130, LDL of 55, HDL 54. ASSESSMENT AND PLAN: 1. Angina. 2. Multivessel coronary artery disease. 3. Status post multiple PCIs including right coronary and left circumflex artery. 4. Hypertension. 5. Diabetes. 6. Dyslipidemia. RECOMMENDATIONS: I will hold the Metformin for the next 48 hours. Aspirin and Brilinta will be co ntinued. Beta gladys will be continued. Statin will be continued. Monitor the patient overnight in the ICU. Plan for outpatient followup on medical therapy. If the patient has recurrent chest co nsistent with ischemia in the LAD area will consider PCI of the LAD, otherwise medical therapy. Dictated By: LEONIE BANEGAS/ALEXX Conf#: [id number] DID#: [id number]
[2016-05-25] MEDS: INSULIN ASPART [NOVOLOG] 3 ML PEN SC SCH ×3 (17:44→21:00)
[2016-05-25] MEDS ORDERED: INSULIN ASPART [NOVOLOG] 3 ML PEN SC SCH (17:51)
--- NOTE | 2016-05-25 18:09 | HP ---
DATE OF ADMISSION: 05/25/2016 CONSULT DURING THIS ADMISSION: Dr. Hector Kaur from cardiology. CHIEF COMPLAINT: On admission elective angiogram and stent placement. HISTORY OF PRESENT ILLNESS: This is a 70-year-old male with coronary artery disease, status post ST elevation myocardial infarction and PCI of the right coronary artery with known LAD and left circum flex artery disease who was admitted today after elective PCI that required placement of stent to th e left circumflex artery and the OM. The patient has been stable post-procedure and he is going to be observed in the intensive care unit. The patient reports that he has been doing well. He has be en compliant with his medications and was fairly asymptomatic. He does have diabetes mellitus and h as been also compliant when it comes to that. He did quit smoking. I have discussed the case with Dr. Kaur, who at this point just wanted the patient observed overnight with planned discharge home tomorrow morning. He already has all his medications which are unchanged from his previous admissi on. PAST MEDICAL HISTORY: 1. Hypertension. 2. Coronary artery disease, status post ST elevation myocardial infarction requiring PCI of the rig ht coronary artery. This was approximately a month ago. 3. Diabetes mellitus. 4. Hyperlipidemia. 5. Major depressive disorder. PAST SURGICAL HISTORY: Status post right hand surgery remotely, status post percutaneous coronary i ntervention with stent placement to RCA approximately a month ago and now status post second PCI wit h stent placement to left circumflex and OM. SOCIAL HISTORY: The patient has quit smoking. He did smoke approximately 1 pack a day for the past 54 years and claimed that he did stop smoking approximately 3 weeks ago. He does drink. He was dr inking 3 beers daily but has cut down significantly. REVIEW OF SYSTEMS: As per HPI. The patient denies any fevers, chills. No neurological deficit. N o cardiopulmonary complaints. No genitourinary complaints. He has been doing really well. OUTPATIENT MEDICATIONS: 1. Brilinta 90 mg p.o. b.i.d. 2. Atorvastatin 80 mg p.o. daily. 3. Carvedilol 6.25 mg p.o. b.i.d. 4. Lisinopril 10 mg p.o. daily. 5. Aspirin 81 mg p.o. daily. 6. Venlafaxine 75 mg p.o. b.i.d. 7. Metformin 1000 mg p.o. with breakfast. PHYSICAL EXAMINATION: VITAL SIGNS: Temperature is 98.3, heart rate of 78, sinus rhythm, blood pressure 107/51, respirator y rate 21. Patient is saturating 96% on room air. GENERAL: He is a very pleasant gentleman. He is in no acute distress, alert and oriented x4. HEENT: Pupils are equally round and reactive to light. Extraocular muscles are intact. Anicteric sclerae. NECK: No JVD, no thyromegaly noted. HEART: Regular rate and rhythm. No murmur, rubs, or gallops. LUNGS: Clear to auscultation bilaterally. ABDOMEN: Soft, nontender, nondistended. Bowel sounds are present. EXTREMITIES: No edema, clubbing or cyanosis. NEUROLOGIC: He is grossly intact. LABORATORY DATA: White blood cell count 7.1, hemoglobin 13.9, hematocrit 40.5, platelet count of 30 1. Chemistry with a sodium of 143, potassium 4.4, chloride 103, bicarbonate 29, BUN 17, creatinine 0.88, glucose of 134, the latest one was 129. Liver function testing within normal. Troponin less than 0.012. Fasting lipid panel with cholesterol of 130, LDL of 55, HDL of 54. INR 0.85. PT 11.6, PTT 26.2. RADIOLOGICAL DATA: The patient is status post PCI with stenting of the left circumflex and OM. ASSESSMENT AND PLAN: This is a 70-year-old male with: 1. Elective PCI with stent placement to left circumflex and OM. He has restarted aspirin and Brili nta. His blood pressure is controlled. He has all his medication already at home. He will be obse rved in the intensive care unit. If he remains stable with no arrhythmia and blood pressure are sta ble by the morning also if he is chest pain free, he will be discharged home on his current medicati on with outpatient followup with Dr. Kaur. I have discussed this with Dr. Kaur today. 2. Hypertension. Continue home medications. 3. Hyperlipidemia. Continue home medications. 4. Diabetes mellitus. The patient will be able to resume his metformin in 72 hours at home. For n ow, he will be on a sliding scale insulin while inpatient. 5. Prophylaxis. The patient is already eating and tolerating p.o. He is also ambulatory. DISPOSITION: Again, patient will be observed and monitored in the intensive care unit overnight wit h planned discharge home in the next 24 hours. Dictated By: JAREK RIDLEY/ALEXX Conf#: [id number] DID#: [id number]
--- NOTE | 2016-05-25 18:45 | RADRPT ---
Vent Rate: 63 bpm RR Interval: 0 msec [place] Interval: 140 msec QRS Duration: 98 msec QT Interval: 434 msec QTC Interval: 444 msec P-R-T [place]: 57 - 73 - 42 degrees Normal sinus rhythm Normal ECG Electronically Signed By: Nithin Valdovinos [id number]
[2016-05-25] MEDS ORDERED: ZOLPIDEM 5 MG TAB PO PRN (20:00)
[2016-05-25] MEDS: DOCUSATE SODIUM 100 MG CAP PO SCH (21:00)
[2016-05-25] MEDS: FAMOTIDINE 20 MG TAB PO SCH (21:00)
[2016-05-25] MEDS ORDERED: ATORVASTATIN 80 MG TAB PO SCH (21:00)
[2016-05-25] MEDS ORDERED: TICAGRELOR 90 MG TABLET PO SCH (21:00)
[2016-05-25] MEDS: TICAGRELOR 90 MG TABLET PO SCH (21:21)
[2016-05-25] MEDS: VENLAFAXINE (XR) 75 MG CAP PO SCH (21:24)
[2016-05-26] VITALS (11 sets, daily range): BP systolic 107–148; BP diastolic 46–83; PULSE 71–78; RESP 14–24
[2016-05-26] MEDS ORDERED: ACETAMINOPHEN 325 MG TAB PO PRN (00:30)
[2016-05-26] MEDS ORDERED: ONDANSETRON 4 MG TAB PO PRN (00:30)
[2016-05-26] MEDS ORDERED: NACL 0.9% 3 ML SYG IV SCH (00:30)
[2016-05-26] MEDS ORDERED: ZOLPIDEM 5 MG TAB PO PRN (00:30)
[2016-05-26] MEDS ORDERED: DEXTROSE 50% 50 ML SYRINGE IV PRN ×2 (00:45)
[2016-05-26] MEDS ORDERED: GLUCOSE GEL 15 GRAM TUBE BUCCAL PRN (00:45)
[2016-05-26] MEDS ORDERED: GLUCAGON 1 MG INJ IM PRN (00:45)
[2016-05-26] MEDS ORDERED: GLUCOSE GEL 15 GRAM TUBE PO PRN ×2 (00:45)
[2016-05-26 06:13] LABS: POTASSIUM 4.1 mmol/L (3.5-5.1)
[2016-05-26 06:16] LABS: CREATININE 0.74 mg/dl (0.61-1.24)
[2016-05-26 06:17] LABS: CALCIUM 8.7 mg/dl (8.4-10.2)
[2016-05-26 06:24] LABS: HEMATOCRIT 33.5 % (42.0-52.0); HEMOGLOBIN 11.5 g/dl (14.0-18.0); MEAN CORPUSCULAR HEMOGLOBIN 33.3 pg (29.0-33.0); MEAN CORPUSCULAR HGB CONC 34.3 g/dl (32.0-37.0); MEAN CORPUSCULAR VOLUME 97.1 fl (82.0-101.0); RED BLOOD COUNT 3.45 10^6/ul (4.70-6.10); RED CELL DISTRIBUTION WIDTH 12.3 % (11.5-14.5); WHITE BLOOD COUNT 8.3 10^3/ul (4.8-10.8)
[2016-05-26 06:25] LABS: BASOPHILS % 0.2 % (0.0-2.0); EOSINOPHILS # 0.2 10^3/ul (0.0-0.5); EOSINOPHILS % 2.5 % (0.0-7.0); LYMPHOCYTES # 1.6 10^3/ul (0.8-2.9); LYMPHOCYTES % 19.6 % (15.0-51.0); MEAN PLATELET VOLUME 10.7 fl (7.4-10.4); MONOCYTE # 0.6 10^3/ul (0.3-0.9); MONOCYTES % 6.7 % (0.0-11.0); NEUTROPHIL # 5.8 10^3/ul (1.6-7.5); NEUTROPHILS % 70.5 % (39.0-77.0); PLATELET COUNT 236 10^3/UL (140-440)
[2016-05-26] MEDS: INSULIN ASPART [NOVOLOG] 3 ML PEN SC SCH (07:35)
[2016-05-26] MEDS: DOCUSATE SODIUM 100 MG CAP PO SCH ×2 (08:49→08:58)
[2016-05-26] MEDS: FAMOTIDINE 20 MG TAB PO SCH (08:50)
[2016-05-26] MEDS: VENLAFAXINE (XR) 75 MG CAP PO SCH (08:50)
[2016-05-26] MEDS: TICAGRELOR 90 MG TABLET PO SCH (08:51)
--- NOTE | 2016-05-26 08:53 | DS ---
Date/Time of Note Date/Time of Note DATE: 05/26/16 TIME: 08:48 Discharge Summary Admission/Discharge Info Admit Date/Time May 25, 2016 at 17:00 Discharge Date/Time May 26, 2016 Final Diagnosis 1. S/p STEMI in April 2016 2. Coronary artery disease, with severe stenosis of the OM1 and distal left circumflex coronary arteries. 3. Hypertension. 4. Hyperlipidemia. 5. Diabetes mellitus. 6. Major depressive disorder. Patient Condition: Good Consults Leonie Kaur MD (cardiology) Procedures Cardiac catheterization with PTCA and stent placement to the OM1 and distal left circumflex. Hx of Present Illness Mr. Garcia is a 70-year-old patient of Dr. Neeta Crowley with a history of hypertension, hyperlipidemia, and diabetes mellitus who presented 05/03/16 to the [facility] emergency department with chest pain and abnormal EKG. He was diagnosed then with ST-elevation myocardial infarction, with a STEMI code called and emergent stent placement to address an obstruction of his RCA 90% to 99%. He was admitted yesterday for elective repeat cardiac catheterization and possible stenting of the distal left circumflex and obtuse marginal coronary arteries. Hospital Course Per Dr. Kaur's detailed procedure note, Mr. Garcia underwent left heart catheterization, with selective right and left coronary angiography and a right femoral angiogram. He had successful percutaneous transluminal coronary angioplasty and stenting of the distal left circumflex artery from 95% to 99% stenosis with no significant residual stenosis using a 2.25 x 12 mm Promus drug- eluting stent. Also completed successfully was a PTCA and stenting of the obtuse marginal (OM1) from 80% stenosis and no significant residual stenosis using a 2.5 x 28 mm Promus drug-eluting stent. Closure of the right femoral artery was achieved with a Perclose device. He was comfortable overnight in the ICU, with no chest discomfort, dyspnea or nausea. Telemetry monitoring showed no arrhythmia. Blood sugar was 134, with metformin withheld due to cardiac catheterization. On physical exam, he was comfortable-appearing, breathing on room air. His cardiac rhythm was regular, with no murmur or rub, JVD, or peripheral edema. Pulmonary exam was clear. Abdominal exam was normal. Neurologic exam showed intact executive function and normal affect, with intact cranial nerves, motor and sensory exams. Home Meds Active Scripts Nitroglycerin* (Nitrostat*) 0.4 Mg Tab.subl, 1 TAB SL Q5M Y for CHEST PAIN, #20 As directed, each five minutes for cardiac chest pain, times three and call for help Prov:SVEN JACOB M.D. 05/26/16 Ticagrelor* (Brilinta*) 90 Mg Tablet, 90 MG PO BID for 30 Days, TAB 11 Refills Prov:JAREK GIBSON 05/04/16 Lisinopril* (Lisinopril*) 10 Mg Tablet, 10 MG PO DAILY for 30 Days, TAB 3 Refills Prov:JAREK GIBSON 05/04/16 Carvedilol* (Carvedilol*) 6.25 Mg Tablet, 6.25 MG PO BID for 30 Days, TAB 3 Refills Prov:JAREK GIBSON 05/04/16 Atorvastatin* (Atorvastatin*) 80 Mg Tablet, 80 MG PO DAILY@21 for 30 Days, TAB 3 Refills Prov:JAREK GIBSON 05/04/16 Aspirin* (Aspirin* EC) 81 Mg Tablet.dr, 81 MG PO DAILY for 30 Days, 11 Refills Prov:JAREK GIBSON 05/04/16 Reported Medications Metformin Hcl* (Metformin Hcl*) 1,000 Mg Tablet, 1000 MG PO WITH BREAKFAST, #30 TAB 05/25/16 Venlafaxine Hcl* (Venlafaxine Hcl ER*) 75 Mg Cap.er.24h, 75 MG PO BID, CAP 05/25/16 Follow-up Plan 1. The patient is to follow up with Dr. Kaur in 1 to 2 weeks, and a third catheterization anticipated in about six weeks to address LAD disease. 2. Follow-up with his primary care physician, Dr. Crowley, in 1 to 2 weeks 3. He was told to resume his metformin on 05/28/2016. 4. Discharge home, where he has the support of a close friend and her mother, who live with him. Pending Labs Laboratory Tests Test 05/25/16 09:33 05/25/16 10:00 05/25/16 17:39 05/25/16 21:32 Activated Partial Thromboplast Time 26.2Sec (25.0-35.0) Alanine Aminotransferase (ALT/SGPT) 43IU/L (13-69) Albumin 3.9g/dl (3.3-4.9) Albumin/Globulin Ratio 1.25 Alkaline Phosphatase 95IU/L (42-121) Anion Gap 15 (8-16) Aspartate Amino Transf (AST/SGOT) 36IU/L (15-46) Basophils # 0.010^3/ul (0.0-0.1) Basophils % 0.3% (0.0-2.0) Blood Urea Nitrogen 17mg/dl (7-20) Calcium Level 9.3mg/dl (8.4-10.2) Carbon Dioxide Level 29mmol/L (21-31) Chloride Level 103mmol/L (97-110) Cholesterol Level 130mg/dl (100-200) Cholesterol/HDL Ratio 2.4RATIO Creatine Kinase 41IU/L (23-200) Creatine Kinase Index 4.0 Creatinine 0.88mg/dl (0.61-1.24) Creatinine Kinase MB (Mass) 1.63ng/ml (0.0-2.4) Direct Bilirubin 0.00mg/dl (0.00-0.20) Eosinophils # 0.210^3/ul (0.0-0.5) Eosinophils % 2.8% (0.0-7.0) Globulin 3.10g/dl (1.3-3.2) Glucose Level 134mg/dl (70-220) HDL Cholesterol 54mg/dl (30-78) Hematocrit 40.5% (42.0-52.0) Hemoglobin 13.9g/dl (14.0-18.0) INR International Normalized Ratio 0.85 Indirect Bilirubin 0.2mg/dl (0-1.1) LDL Cholesterol, Calculated 55mg/dl Lymphocytes # 1.610^3/ul (0.8-2.9) Lymphocytes % 23.3% (15.0-51.0) Mean Corpuscular Hemoglobin 33.1pg (29.0-33.0) Mean Corpuscular Hemoglobin Concent 34.2g/dl (32.0-37.0) Mean Corpuscular Volume 97.0fl (82.0-101.0) Mean Platelet Volume 9.0fl (7.4-10.4) Monocytes # 0.510^3/ul (0.3-0.9) Monocytes % 6.4% (0.0-11.0) Neutrophils # 4.810^3/ul (1.6-7.5) Neutrophils % 67.2% (39.0-77.0) Nucleated Red Blood Cells # 0.010^3/ul (0.0-0.0) Nucleated Red Blood Cells % 0.0/100WBC (0.0-0.0) Platelet Count 28854^3/UL (140-440) Potassium Level 4.4mmol/L (3.5-5.1) Prothrombin Time 11.6Sec (12.2-14.2) Prothrombin Time Ratio 0.9 Red Blood Count 4.1810^6/ul (4.70-6.10) Red Cell Distribution Width 12.4% (11.5-14.5) Sodium Level 143mmol/L (135-144) Total Bilirubin 0.2mg/dl (0.2-1.3) Total Protein 7.0g/dl (6.1-8.1) Triglycerides Level 103mg/dl (0-149) Troponin I < 0.012ng/ml (0.00-0.12) White Blood Count 7.110^3/ul (4.8-10.8) Bedside Glucose 129mg/dL (70-220) 115mg/dL (70-220) 189mg/dL (70-220) Test 05/25/16 22:38 05/26/16 05:10 05/26/16 08:03 Bedside Glucose 161mg/dL (70-220) 136mg/dL (70-220) Anion Gap 13 (8-16) Basophils # 0.010^3/ul (0.0-0.1) Basophils % 0.2% (0.0-2.0) Blood Urea Nitrogen 13mg/dl (7-20) Calcium Level 8.7mg/dl (8.4-10.2) Carbon Dioxide Level 26mmol/L (21-31) Chloride Level 105mmol/L (97-110) Creatinine 0.74mg/dl (0.61-1.24) Eosinophils # 0.210^3/ul (0.0-0.5) Eosinophils % 2.5% (0.0-7.0) Glucose Level 114mg/dl (70-220) Hematocrit 33.5% (42.0-52.0) Hemoglobin 11.5g/dl (14.0-18.0) Lymphocytes # 1.610^3/ul (0.8-2.9) Lymphocytes % 19.6% (15.0-51.0) Magnesium Level 1.6mg/dl (1.7-2.5) Mean Corpuscular Hemoglobin 33.3pg (29.0-33.0) Mean Corpuscular Hemoglobin Concent 34.3g/dl (32.0-37.0) Mean Corpuscular Volume 97.1fl (82.0-101.0) Mean Platelet Volume 10.7fl (7.4-10.4) Monocytes # 0.610^3/ul (0.3-0.9) Monocytes % 6.7% (0.0-11.0) Neutrophils # 5.810^3/ul (1.6-7.5) Neutrophils % 70.5% (39.0-77.0) Nucleated Red Blood Cells # 0.010^3/ul (0.0-0.0) Nucleated Red Blood Cells % 0.0/100WBC (0.0-0.0) Platelet Count 68972^3/UL (140-440) Potassium Level 4.1mmol/L (3.5-5.1) Red Blood Count 3.4510^6/ul (4.70-6.10) Red Cell Distribution Width 12.3% (11.5-14.5) Sodium Level 140mmol/L (135-144) White Blood Count 8.310^3/ul (4.8-10.8) Copies To: CC: JAREK GIBSON; LEONIE KAUR MD, JOHN P. M.D. May 26, 2016 08:53
[2016-05-26] MEDS ORDERED: ASPIRIN (EC) 81 MG TAB PO SCH (09:00)
[2016-05-26] MEDS ORDERED: LISINOPRIL 10 MG TAB PO SCH (09:00)
--- NOTE | 2016-05-26 09:03 | PDOCDIS ---
Discharge Instructions DIAGNOSIS Discharge Diagnosis: Coronary artery disease, s/p PTCA and stents to OM1 and left circumflex CONDITION Patient Condition: Good HOME CARE INSTRUCTIONS: Diet Instructions: controlled carbohydrateSpecial Diet: 1500 2g Na ACTIVITY: Activity Restrictions: Slowly Increase Activity FOLLOW UP/APPOINTMENTS Appointments Dr. Kaur in two weeks; Dr. Neeta Crowley in the next week. SVEN JACOB M.D. May 26, 2016 09:03
[2016-05-26] MEDS ORDERED: NIT4 SL (09:05)
== END 2016-05-26 11:07 | disposition home or self-care (01) ==
LOC: SDS 08:29 → UNDOADMIN 17:00 → SDS 17:00 → ICU 17:00 → SDS 05-26 11:07 → UNDODISIN 05-26 11:07
PROVIDERS: ATTEND Internal Medicine Interventional Cardiology
DX: I25.10 Atherosclerotic heart disease of native coronary artery without angina pectoris (principal); I10 Essential (primary) hypertension; E78.5 Hyperlipidemia, unspecified; E11.9 Type 2 diabetes mellitus without complications; F32.9 Major depressive disorder, single episode, unspecified
CPT/HCPCS: 80048; 80053; 80061; 82550; 82553; 82962; 83735; 84484; 85025; 85610; 85730; 87081; 93005; 93458; C1725; C1760; C1769; C1874; C1887; C1894; C9600; C9601; J0583; J1644; J1815; J2250; J3010; Q9967